=== PATIENT | male | born 1970 | race Caucasian/White ===

== ENCOUNTER 2021-08-18 06:43 | Inpatient (IN) | payer OTHER ==
[~2021-08-18] VITALS: Ht 182.9 cm; Wt 90.7 kg
[2021-08-18 07:10] LABS: BASOPHIL 0.2 % (0-2); EOSINOPHIL 0.5 % (0-5); HCT 39.8 % (42.0-52.0); HGB 13.4 g/dl (13.2-18.0); LYMPHOCYTE 8.7 % (15-48); MCH 28.9 pg (25.0-31.0); MCHC 33.7 g/dL (32.0-36.0); MCV 85.8 fL (78.0-100.0); MPV 9.3 fL (6.0-9.5); NRBC 0; PLT 267 K/uL (150-400); RBC 4.64 M/uL (4.70-6.00); RDW 13.3 % (11.5-14.0); WBC 18.1 K/uL (4.0-10.5)
[2021-08-18 07:49] LABS: ALBUMIN 3.7 g/dL (3.4-5.0); ALKALINE PHOSHATASE 111 U/L (46-116); ALT 32 U/L (16-63); AST 29 U/L (15-37); BILIRUBIN - TOTAL 0.6 mg/dL (0.2-1.0); BUN 15 mg/dL (7-18); CHLORIDE 97 mmol/L (98-107); CO2 (BICARBONATE) 21 mmol/L (21-32); GLOBULIN (CALCULATION) 4.5 g/dL; GLUCOSE 102 mg/dL (74-106); LDH 203 U/L (85-227); POTASSIUM 4.1 mmol/L (3.5-5.1); TOTAL PROTEIN 8.2 g/dL (6.4-8.2)
[2021-08-18 07:52] LABS: C-REACTIVE PROTEIN < 0.20 mg/dL (<=0.90)
[2021-08-18 08:05] LABS: LACTIC ACID 1.6 mmol/L (0.4-1.9)
[2021-08-18 10:27] LABS: BILIRUBIN NEGATIVE (NEGATIVE); BLOOD NEGATIVE Ery/uL (NEGATIVE); CLARITY CLEAR (CLEAR); COLOR YELLOW (YELLOW); GLUCOSE (U) NORMAL (NORMAL); LEUKOCYTES NEGATIVE Leu/uL (NEGATIVE); NITRITE NEGATIVE (NEGATIVE); PROTEIN NEGATIVE (NEGATIVE); SPECIFIC GRAVITY <=1.005 (1.001-1.030); UROBILINOGEN 0.2 mg/dL (0.2-1.0); pH 5.5 (5.0-9.0)
[2021-08-18 21:41] LABS: FLU B NEGATIVE B (NEGATIVE B)
[2021-08-19 05:47] LABS: BASOPHIL 0.1 % (0-2); EOSINOPHIL 0 % (0-5); HCT 36.5 % (42.0-52.0); HGB 12.1 g/dl (13.2-18.0); LYMPHOCYTE 8.8 % (15-48); MCH 28.9 pg (25.0-31.0); MCHC 33.2 g/dL (32.0-36.0); MCV 87.3 fL (78.0-100.0); MONOCYTE 7.4 % (0-12); MPV 9.4 fL (6.0-9.5); NEUTROPHIL 83.1 % (41-80); NRBC 0; PLT 273 K/uL (150-400); RBC 4.18 M/uL (4.70-6.00); RDW 13.7 % (11.5-14.0); WBC 19.3 K/uL (4.0-10.5)
[2021-08-19 06:07] LABS: BUN/CREAT RATIO (CALC) 22.8 RATIO; CREATININE 0.92 mg/dL (0.67-1.17); POTASSIUM 3.9 mmol/L (3.5-5.1)
[2021-08-19 17:20] LABS: B. PERTUSSIS DNA NOT DETECTED (NOT DETECT); CHLAMYDOPHILA PNEUMON DNA PCR NOT DETECTED (NOT DETECT); CORONAVIRUS 2019 PCR NOT DETECTED (NOT DETECTD); CORONAVIRUS 229E NOT DETECTED (NOT DETECT); CORONAVIRUS HKU1 NOT DETECTED (NOT DETECT); CORONAVIRUS NL63 NOT DETECTED (NOT DETECT); CORONAVIRUS OC43 NOT DETECTED (NOT DETECT); HUMAN METAPNEUMO NOT DETECTED (NOT DETECT); INFLUENZA A NOT DETECTED (NOT DETECT); INFLUENZA A 2009 H1N1 NOT DETECTED (NOT DETECT); INFLUENZA A H1 NOT DETECTED (NOT DETECT); INFLUENZA A H3 NOT DETECTED (NOT DETECT); INFLUENZA B NOT DETECTED (NOT DETECT); MYCOPLASMA PNEUMONIAE NOT DETECTED (NOT DETECT); PARAINFLUENZA 1 NOT DETECTED (NOT DETECT); PARAINFLUENZA 2 NOT DETECTED (NOT DETECT); PARAINFLUENZA 3 NOT DETETED (NOT DETECT); PARAINFLUENZA 4 NOT DETECTED (NOT DETECT); RESPIRATORY SYNCYTIAL VIRUS NOT DETECTED (NOT DETECT)
[2021-08-20 07:05] LABS: BASOPHIL 0.2 % (0-2); EOSINOPHIL 0.2 % (0-5); HCT 35.9 % (42.0-52.0); HGB 11.8 g/dl (13.2-18.0); LYMPHOCYTE 19.4 % (15-48); MCHC 32.9 g/dL (32.0-36.0); MCV 88.2 fL (78.0-100.0); MONOCYTE 5.6 % (0-12); MPV 8.9 fL (6.0-9.5); NEUTROPHIL 73.8 % (41-80); NRBC 0; PLT 292 K/uL (150-400); RBC 4.07 M/uL (4.70-6.00); RDW 13.7 % (11.5-14.0); WBC 14.6 K/uL (4.0-10.5)
[2021-08-20 07:17] LABS: BUN/CREAT RATIO (CALC) 22.9 RATIO; C-REACTIVE PROTEIN 7.2 mg/dL (<=0.90); CREATININE 0.83 mg/dL (0.67-1.17); MAGNESIUM 2.3 mg/dL (1.8-2.4); POTASSIUM 4.1 mmol/L (3.5-5.1)
[2021-08-20] MEDS ORDERED: PREDNISONE 20MG20 MG PO (17:32)
[2021-08-20] MEDS ORDERED: ACAMPROSATE CA333 MG PO (17:33)
[2021-08-20] MEDS ORDERED: B-1100 MG PO (17:34)
[2021-08-20] MEDS ORDERED: IBUPROFEN800 MG PO (17:34)
[2021-08-20] MEDS ORDERED: BUSPIRONE HCL15 MG PO (17:35)
[2021-08-20] MEDS ORDERED: INDERAL20 MG PO (17:35)
[2021-08-20] MEDS ORDERED: ZOLOFT50 MG PO (17:36)
[2021-08-20] MEDS ORDERED: SEROQUEL 25MG T25 MG PO (17:36)
[2021-08-20] MEDS ORDERED: ROBAXIN750 MG PO (17:37)
[2021-08-21 04:19] LABS: BASOPHIL 0.3 % (0-2); EOSINOPHIL 0.2 % (0-5); HCT 35.3 % (42.0-52.0); HGB 11.5 g/dl (13.2-18.0); LYMPHOCYTE 21.5 % (15-48); MCH 28.8 pg (25.0-31.0); MCHC 32.6 g/dL (32.0-36.0); MCV 88.5 fL (78.0-100.0); MONOCYTE 6.6 % (0-12); NEUTROPHIL 70.1 % (41-80); NRBC 0; PLT 309 K/uL (150-400); RBC 3.99 M/uL (4.70-6.00); RDW 13.4 % (11.5-14.0)
[2021-08-21] MEDS ORDERED: ADVAIR HFA 230-28 GM INH (08:51)
[2021-08-21] MEDS ORDERED: TESSALON PERLE100 MG PO (08:51)
[2021-08-21] MEDS ORDERED: PROVENTIL HFA6.7 GM INH (08:51)
[2021-08-21] MEDS ORDERED: PREDNISONE 20MG20 MG PO (08:51)
[2021-08-21] MEDS ORDERED: AZITHROMYCIN250 MG PO (08:51)
[2021-08-21] MEDS ORDERED: CEFDINIR300 MG PO (08:51)
[2021-08-21] MEDS ORDERED: MUCINEX 600MG600 MG PO (08:51)
[2021-08-21] MEDS ORDERED: INDERAL20 MG PO (11:28)
--- NOTE | 2021-08-21 11:36 | NUR ---
0745 NOTED LOW BLOOD PRESSURE READING. DR SHAH AWARE. ORDER FOR LR 1000ML TO INFUSE AT 999. PATIENT EXPRESSED NO SIGNS OR SYMPTOMS, ENCOURAGED TO CALL FOR ASSISTANCE TO RESTROOM. BOLUS COMPLETED. BP RESPONDED 160/97 HR 85 SAT 93% ON ROOM AIR.
[2021-08-21] MEDS ORDERED: VIBRAMYCIN100 MG PO (12:32)
--- NOTE | 2021-08-21 13:52 | NUR ---
PATIENT DISCHARGED HOME, VERBALIZED UNDERSTANDING OF DC INSTRUCTIONS. PICKED UP BY EMPLOYEE OF [facility].
== END 2021-08-21 13:50 | disposition home or self-care (01) | DRG 193 ==
LOC: FER 06:43 → FMS 13:16
PROVIDERS: Emergency Medicine; ADMIT Allergy & Immunology Allergy
DX: J18.9 Pneumonia, unspecified organism (principal); J96.91 Respiratory failure, unspecified with hypoxia; J44.0 Chronic obstructive pulmonary disease with (acute) lower respiratory infection; Z20.822 Contact with and (suspected) exposure to COVID-19; F17.200 Nicotine dependence, unspecified, uncomplicated; F10.11 Alcohol abuse, in remission; Z88.0 Allergy status to penicillin
CPT/HCPCS: 36415; 36600; 71045; 71046; 71275; 80048; 80053; 81003; 82728; 82803; 83605; 83615; 83735; 84145; 84484; 85025; 85379; 86140; 87040; 87070; 87205; 87449; 87804; 87899; 93005; 94010; 94640; 94664; 94668; A4216; J0456; J0692; J1650; J2001; J2405; J2930; J3370; J7030; J7050; J7120; J7512; Q9967; U0002